=== PATIENT | female | born 1985 | race African-American/Black ===

== ENCOUNTER 2017-06-20 12:56 | Emergency (ER) | payer SELFPAY ==
[~2017-06-20] VITALS: Ht 149.9 cm; Wt 94.0 kg
[2017-06-20] MEDS ORDERED: HYDR25TA PO (13:03)
[2017-06-20 13:31] LABS: PROTHROMBIN TIME 10.1 sec (9.4-11.6)
[2017-06-20 13:32] LABS: HEMATOCRIT. 36.7 % (36.0-48.0); HEMOGLOBIN. 11.7 g/dL (12.0-16.0); MEAN CORPUSCULAR HEMOGLOBIN 21.1 pg (28.0-32.0); MEAN CORPUSCULAR VOLUME 66.5 fL (81.0-99.0); PLATELET 283 x1000/uL (130-400); RED BLOOD CELL COUNT 5.51 mill/uL (4.2-5.4); RED CELL DISTRIBUTION WIDTH 15.4 % (11.6-14.6)
[2017-06-20 13:33] LABS: BASOPHILS % 0.4 % (0.0-2.0); EOSINOPHILS % 1.4 % (0.0-5.0); LYMPHOCYTES % 38.8 % (20.0-50.0); MEAN PLATELET VOLUME 7.7 fl (7.4-10.4); MONOCYTES % 5.8 % (2.0-8.0); NEUTROPHILS % 53.6 % (40.0-76.0)
[2017-06-20 13:43] LABS: CHLORIDE 104 mEq/L (98-107)
[2017-06-20 13:44] LABS: PLATELET ESTIMATE NORMAL
[2017-06-20 15:21] VITALS: BP 170/112
== END 2017-06-20 15:22 | disposition home or self-care (01) ==
LOC: ER 12:56
DX: R07.9 Chest pain, unspecified (principal); I16.0 Hypertensive urgency; I10 Essential (primary) hypertension; F12.10 Cannabis abuse, uncomplicated
CPT/HCPCS: 36415; 71045; 80053; 81025; 83690; 84484; 85025; 85610; 85730; 93005; 99285; Z7610

== ENCOUNTER 2018-09-24 10:12 | Observation (INO) | payer MEDICAID ==
[~2018-09-24] VITALS: Ht 160 cm; Wt 108.9 kg
[~2018-09-24 10:12] MED LIST: HYDR25TA PO
[2018-09-24] MEDS ORDERED: LACTATED RINGERS 1,000 ML IV SCH (11:03)
[2018-09-24 12:05] LABS: COLOR URINE YELLOW (YELLOW); KETONES URINE NEGATIVE (NEGATIVE); LEUKOCYTE ESTERASE URINE NEGATIVE (NEGATIVE); NITRITE URINE NEGATIVE (NEGATIVE); OCCULT BLOOD URINE NEGATIVE (NEGATIVE); PH URINE 7.5 (4.5-8.0); PROTEIN URINE NEGATIVE (NEGATIVE); SPECIFIC GRAVITY URINE 1.015 (1.005-1.030); UROBILINOGEN URINE 0.2 E.U./dL (0.2-1.0)
[2018-09-24 12:15] LABS: CLARITY URINE SL HAZY (CLEAR)
[2018-09-24] MEDS ORDERED: PNV1TABL50 MT (13:03)
== END 2018-09-24 13:15 | disposition home or self-care (01) ==
LOC: 8 EST LDRP 10:12
PROVIDERS: ADMIT Obstetrics & Gynecology; ATTEND Obstetrics & Gynecology
DX: O26.893 Other specified pregnancy related conditions, third trimester (principal); R10.30 Lower abdominal pain, unspecified; Z3A.28 28 weeks gestation of pregnancy
CPT/HCPCS: 81003; 82731; 99281; G0378; 96360; 96361

== ENCOUNTER 2018-12-10 08:46 | Inpatient (IN) | payer MEDICAID ==
[~2018-12-10] VITALS: Ht 160 cm; Wt 110.2 kg
[~2018-12-10 08:46] MED LIST changes: -HYDR25TA PO; +PNV1TABL50 MT
[2018-12-10] MEDS ORDERED: ERGO400C PO (09:24)
[2018-12-10] MEDS ORDERED: NIFE30TA83 PO (09:24)
[2018-12-10] MEDS ORDERED: DEXT 5%/LACTATED RINGERS 1,000 ML IV SCH (09:25)
[2018-12-10] MEDS ORDERED: LACTATED RINGERS 1,000 ML IV SCH (09:29)
[2018-12-10] MEDS ORDERED: BUTORPHANOL TARTRATE 2 MG/ML VIAL IV PRN (09:30)
[2018-12-10] MEDS ORDERED: MISOPROSTOL 100MCG TABLET VG PRN (09:30)
[2018-12-10] MEDS ORDERED: LIDOCAINE HCL 1% 20ML VIAL (Pyxis) INJ INFIL PRN (09:30)
[2018-12-10] MEDS ORDERED: CARBOPROST TROMETHAMINE 250 MCG/ML AMPUL IM PRN (09:30)
[2018-12-10] MEDS ORDERED: NALOXONE HCL 0.4 MG/ML 1ML VIAL IM PRN (09:30)
[2018-12-10] MEDS ORDERED: DEXT 5%/LR + PITOCIN 20UNITS/L 1,000 ML IV SCH (09:45)
[2018-12-10] MEDS ORDERED: AMPICILLIN 1,000 MG in SODIUM CHLORIDE 0.9% 50 ML IV SCH (10:00)
[2018-12-10] MEDS: FAMOTIDINE 20MG TABLET PO PRN (10:00)
[2018-12-10] MEDS ORDERED: ROPIVACAINE HCL/PF EPIDURAL 200 ML EPI SCH (11:00)
[2018-12-10 12:19] LABS: BASOPHILS % 0.3 % (0.0-2.0); EOSINOPHILS % 0.3 % (0.0-5.0); HEMATOCRIT. 35.8 % (36.0-48.0); HEMOGLOBIN. 11.6 g/dL (12.0-16.0); LYMPHOCYTES % 28.4 % (20.0-50.0); MEAN CORPUSCULAR HEMOGLOBIN 22.5 pg (28.0-32.0); MEAN CORPUSCULAR VOLUME 69.8 fL (81.0-99.0); MEAN PLATELET VOLUME 9.5 fl (7.4-10.4); MONOCYTES % 7.5 % (2.0-8.0); NEUTROPHILS % 63.5 % (40.0-76.0); PLATELET 207 x1000/uL (130-400); RED BLOOD CELL COUNT 5.13 mill/uL (4.2-5.4); RED CELL DISTRIBUTION WIDTH 16.3 % (11.6-14.6)
[2018-12-10 12:24] LABS: CLARITY URINE CLOUDY (CLEAR); COLOR URINE YELLOW (YELLOW); KETONES URINE NEGATIVE (NEGATIVE); LEUKOCYTE ESTERASE URINE 3+ (NEGATIVE); NITRITE URINE NEGATIVE (NEGATIVE); OCCULT BLOOD URINE NEGATIVE (NEGATIVE); PROTEIN URINE NEGATIVE (NEGATIVE); SPECIFIC GRAVITY URINE 1.015 (1.005-1.030); UROBILINOGEN URINE 0.2 E.U./dL (0.2-1.0)
[2018-12-10 12:24] LABS: INR 0.9; PARTIAL THROMBOPLASTIN TIME 23.9 sec (23.4-31.0); PROTHROMBIN TIME 9.6 sec (9.6-11.0)
[2018-12-10 12:48] LABS: *BARBITURATES SCREEN URINE NEGATIVE (NEGATIVE); *BENZODIAZEPINES SCREEN URINE NEGATIVE (NEGATIVE); *COCAINE SCREEN URINE NEGATIVE (NEGATIVE)
[2018-12-10 12:49] LABS: *AMPHETAMINES SCREEN URINE NEGATIVE (NEGATIVE); CANNABINOID URINE SCREEN NEGATIVE (NEGATIVE); METHADONE URINE SCREEN NEGATIVE (NEGATIVE); OPIATES URINE SCREEN NEGATIVE (NEGATIVE); PHENCYCLIDINE URINE SCREEN NEGATIVE (NEGATIVE)
[2018-12-10 13:03] LABS: PLATELET ESTIMATE NORMAL
[2018-12-10 13:59] LABS: HEPATITIS B SURFACE ANTIGEN NEGATIVE
[2018-12-10] MEDS ORDERED: NA PHOS,M-B/NA PHOS,DI-BA ENEMA 118ML PR NR (18:15)
[2018-12-10] MEDS ORDERED: NA PHOS,M-B/NA PHOS,DI-BA ENEMA 118ML RC NR (19:34)
[2018-12-11] VITALS (7 sets, daily range): BP systolic 118–152; BP diastolic 61–92
[2018-12-11] MEDS ORDERED: DEXT 5%/LR + PITOCIN 20UNITS/L 1,000 ML IV SCH (04:08)
[2018-12-11] MEDS ORDERED: BISACODYL 10MG SUPP PR PRN (04:15)
[2018-12-11] MEDS ORDERED: LANOLIN OINT 7GM TUBE TOP PRN (04:15)
[2018-12-11] MEDS ORDERED: HEMORRHOIDAL SUPP PR PRN (04:15)
[2018-12-11] MEDS ORDERED: RHO(D) IMMUNE GLOBULIN 300 MCG/SYR IM PRN ×2 (04:15→04:45)
[2018-12-11] MEDS ORDERED: BENZOCAINE/LANOLIN/ALOE VERA SPRAY TOP PRN (04:15)
[2018-12-11] MEDS ORDERED: IBUPROFEN 400MG TABLET PO PRN (04:15)
[2018-12-11] MEDS ORDERED: ACETAMINOPHEN WITH CODEINE 300/30MG TABLET PO PRN (04:15)
[2018-12-11] MEDS ORDERED: OXYCODONE HCL/ACETAMINOPHEN 5/325MG TABLET PO PRN (04:15)
[2018-12-11] MEDS: ACETAMINOPHEN WITH CODEINE 300/30MG TABLET PO PRN ×2 (05:58→22:55)
[2018-12-11] MEDS: FAMOTIDINE 20MG TABLET PO PRN (07:59)
[2018-12-11] MEDS: PRENATAL VIT/FE FUMARATE/FA TABLET PO SCH (07:59)
[2018-12-11] MEDS: SIMETHICONE 80MG TABLET CHEW PO SCH ×4 (08:00→22:52)
[2018-12-11] MEDS: MAGNESIUM/ALUMINUM HYDROXIDE/SIMETHICONE 30ML UDC PO SCH ×4 (08:00→22:51)
[2018-12-11] MEDS ORDERED: DOCUSATE SODIUM 100MG CAPSULE PO SCH (21:00)
[2018-12-12 07:14] LABS: BASOPHILS % 0.2 % (0.0-2.0); EOSINOPHILS % 0.3 % (0.0-5.0); HEMATOCRIT. 29.3 % (36.0-48.0); HEMOGLOBIN. 9.5 g/dL (12.0-16.0); LYMPHOCYTES % 26.5 % (20.0-50.0); MEAN CORPUSCULAR HEMOGLOBIN 22.7 pg (28.0-32.0); MEAN CORPUSCULAR VOLUME 69.5 fL (81.0-99.0); MEAN PLATELET VOLUME 8.8 fl (7.4-10.4); MONOCYTES % 5.9 % (2.0-8.0); NEUTROPHILS % 67.1 % (40.0-76.0); PLATELET 203 x1000/uL (130-400); RED BLOOD CELL COUNT 4.21 mill/uL (4.2-5.4); RED CELL DISTRIBUTION WIDTH 16.3 % (11.6-14.6)
[2018-12-12] MEDS ORDERED: FERROUS SULFATE 325MG TABLET PO SCH (07:30)
[2018-12-12 07:38] VITALS: BP 130/71
[2018-12-12] MEDS: SIMETHICONE 80MG TABLET CHEW PO SCH (08:42)
[2018-12-12] MEDS: MAGNESIUM/ALUMINUM HYDROXIDE/SIMETHICONE 30ML UDC PO SCH (08:42)
[2018-12-12] MEDS: PRENATAL VIT/FE FUMARATE/FA TABLET PO SCH (08:42)
== END 2018-12-12 11:35 | disposition home or self-care (01) | DRG 560 ==
LOC: 8 EST LDRP 08:46 → OBSVTOIN 08:46 → 8EST 12-11 05:30
PROVIDERS: ADMIT Obstetrics & Gynecology; ATTEND Obstetrics & Gynecology
PROC: 10E0XZZ Delivery of Products of Conception, External Approach (ICD-10-PCS; principal; 2018-12-11)
PROC: 3E0R3BZ Introduction of Anesthetic Agent into Spinal Canal, Percutaneous Approach (ICD-10-PCS; 2018-12-11)
PROC: 00HU33Z Insertion of Infusion Device into Spinal Canal, Percutaneous Approach (ICD-10-PCS; 2018-12-11)
DX: O16.4 Unspecified maternal hypertension, complicating childbirth (principal); Z37.0 Single live birth; Z3A.38 38 weeks gestation of pregnancy
CPT/HCPCS: 36415; 80305; 81003; 84550; 85384; 86703; 86762; 86850; 86900; 87340; G0378; J0290; J2590; J2795; J7121; A4315